=== PATIENT | male | born 1960 | race Hispanic/Latino ===

== ENCOUNTER 2018-02-03 11:07 | Emergency (ER) | payer OTHER ==
--- NOTE | 2018-02-03 13:19 | Emergency Department Report ---
ED Seizure HPI - General Chief Complaint: Seizure Stated Complaint: SEIZURES Time Seen by Provider: 02/03/18 12:53 Source: patient, EMS Mode of arrival: Stretcher Limitations: No Limitations - History of Present Illness Initial Comments: Patient had multiple seizures according to admit called EMS. Patient is now postictal. EMS tried to get IV multiple times without success. Patient was stuck 7 times without success of getting a Peripheral IV. MD Complaint: seizure -: Sudden, This afternoon Description of Episode: loss of consciousness, tonic-clonic movement Witnessed:: Yes Trauma: No Seizure History: known seizure disorder, compliant with medication Place: home Possible Precipitating Event: none Associated Symptoms: denies other symptoms Treatments Prior to Arrival: none - Related Data Allergies Allergy/AdvReac Type Severity Reaction Status Date / Time No Known Allergies Allergy Unverified 02/03/18 12:30 ED Review of Systems ROS: Stated complaint: SEIZURES Other details as noted in HPI Comment: All other systems reviewed and negative Constitutional: denies: chills, diaphoresis, fever Eyes: denies: vision change ENT: denies: ear pain Respiratory: denies: orthopnea, shortness of breath Cardiovascular: denies: chest pain, palpitations Endocrine: increased hunger Gastrointestinal: denies: abdominal pain, nausea, vomiting, diarrhea Genitourinary: denies: urgency, dysuria, frequency Musculoskeletal: denies: back pain, joint swelling, arthralgia Skin: denies: rash, change in color Neurological: denies: headache, weakness, numbness Psychiatric: depression Hematological/Lymphatic: denies: easy bleeding, easy bruising ED Past Medical Hx - Past Medical History Hx Hypertension: Yes Hx Diabetes: Yes Hx Seizures: Yes Hx Psychiatric Treatment: Yes (Bipolar,PTSD, Anxiety) ED Physical Exam - General Limitations: No Limitations General appearance: alert, postictal - Head Head exam: Present: atraumatic, normocephalic, normal inspection - Eye Eye exam: Present: normal appearance, PERRL, EOMI Pupils: Present: normal accommodation - ENT ENT exam: Present: normal exam, mucous membranes moist - Neck Neck exam: Present: normal inspection, tenderness, full ROM - Respiratory Respiratory exam: Present: normal lung sounds bilaterally. Absent: respiratory distress, wheezes, rhonchi, chest wall tenderness - Cardiovascular Cardiovascular Exam: Present: regular rate, normal rhythm - GI/Abdominal GI/Abdominal exam: Present: soft, normal bowel sounds. Absent: tenderness, guarding, rebound - Extremities Exam Extremities exam: Present: normal inspection, full ROM, normal capillary refill - Back Exam Back exam: Present: normal inspection, full ROM - Neurological Exam Neurological exam: Present: alert, other (GCS = 14) - Psychiatric Psychiatric exam: Present: depressed - Skin Skin exam: Present: warm, dry, intact, normal color ED Course - Reevaluation(s) Reevaluation #1: 02/03/18 15:01 I discussed with patient care with the hospitalist on-call Dr. Ortiz. He will admit patient to the hospital for further evaluation and management. ED Medical Decision Making - Lab Data Result diagrams: 02/03/18 14:01 02/03/18 13:10 - Radiology Data Radiology results: report reviewed, image reviewed - Medical Decision Making Seizure Disorder. Critical care attestation.: If time is entered above; I have spent that time in minutes in the direct care of this critically ill patient, excluding procedure time. ED Disposition Clinical Impression: Seizure, Hypoglycemia due to type 2 diabetes mellitus Disposition: OP ADMIT IP TO THIS HOSP Is pt being admited?: Yes Does the pt Need Aspirin: No Condition: Stable Instructions: Diabetes Mellitus Type 2 in Adults (ED)
[2018-02-03 13:37] LABS: BUN/Creatinine Ratio 29; Blood Urea Nitrogen 29 mg/dL (9-20); Calcium 9.3 mg/dL (8.4-10.2); Hemolysis Index 11
--- NOTE | 2018-02-03 13:45 | XRay Report ---
Single view chest: History: Seizure. Findings: Normal cardiomediastinal silhouette. Trachea is midline. No consolidation, pneumothorax or pleural effusion. Impression: No acute cardiopulmonary findings.
[2018-02-03 14:11] LABS: Alanine Aminotransferase 13 units/L (7-56); Albumin 3.9 g/dL (3.9-5)
[2018-02-03 14:13] LABS: Bilirubin,Direct < 0.2 mg/dL (0-0.2)
--- NOTE | 2018-02-03 14:26 | Cat Scan Report ---
FINAL REPORT EXAM: CT HEAD/BRAIN WO CON HISTORY: seizure TECHNIQUE: A noncontrast CT of the head was performed. PRIORS: None. 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 There is a craniotomy in the region. There is no evidence of acute intracranial hemorrhage. There is no edema, mass effect or midline shift. The ventricular size is appropriate for brain volume. Overall there is a moderate degree of cerebral atrophy. There is no skull fracture seen. The visualized paranasal sinuses are clear. 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 There is no acute abnormality identified.
[2018-02-03 14:36] LABS: Hematocrit 35.8 % (35.5-45.6); Hemoglobin 12.6 gm/dl (11.8-15.2); Mean Corpuscular HGB Conc 35 % (32-34); Mean Corpuscular Hemoglobin 32 pg (28-32); Mean Corpuscular Volume 90 fl (84-94); Platelet Count 268 K/mm3 (140-440); Red Blood Count 3.98 M/mm3 (3.65-5.03); Red Cell Distribution Width 14.4 % (13.2-15.2)
[2018-02-03 14:55] LABS: INR 0.93 (0.87-1.13)
[2018-02-03 14:56] LABS: Partial Thromboplastin Time 30.2 Sec. (24.2-36.6)
[2018-02-03] MEDS ORDERED: KEPPRA 1,000 MG/NS 0.75% 100ML 1,000 MG/100 ML BAG IV ONE (14:57)
[2018-02-03 16:52] VITALS: BP 120/75
--- NOTE | 2018-02-03 17:26 | Event Note ---
Date: 02/03/18 Patient with Hypoglycemia Has rest tremor in LUE No active seizures Patient Alert and Oriented times 3 No postictal state Diagnosis Hypoglycemia resolved Seizures well controlled
[2018-02-03] MEDS ORDERED: KEPPRA 1,000 MG in NACL 0.9% 100 ML IV SCH (22:00)
== END 2018-02-03 20:00 | disposition admitted as inpatient to this hospital (09) ==
LOC: ED 11:07 → UNDOADMIN 15:02 → 3A 15:02 → ED 20:00
DX: G40.909 Epilepsy, unspecified, not intractable, without status epilepticus (principal); E11.649 Type 2 diabetes mellitus with hypoglycemia without coma; I10 Essential (primary) hypertension; F31.9 Bipolar disorder, unspecified; F41.9 Anxiety disorder, unspecified; F43.10 Post-traumatic stress disorder, unspecified
CPT/HCPCS: 36415; 70450; 71045; 80048; 80074; 80177; 82962; 85027; 85610; 85730; 96374; 99285; J1953